=== PATIENT | female | born 1995 | race Caucasian/White ===

== ENCOUNTER 2019-10-28 17:22 | Emergency (ER) | payer OTHER, SELFPAY ==
[~2019-10-28] VITALS: Ht 165.1 cm; Wt 83.5 kg
[2019-10-28 17:43] VITALS: Ht 165.1 cm; Wt 83.5 kg
[2019-10-28 19:15] VITALS: BP 120/65
== END 2019-10-28 19:17 | disposition home or self-care (01) ==
LOC: ED 17:22
DX: U07.1 COVID-19 (principal); B34.9 Viral infection, unspecified
CPT/HCPCS: Q0092; U0003-CS